=== PATIENT | male | born 1945 | race Caucasian/White ===

== ENCOUNTER 2016-07-01 09:47 | Day surgery (SDC) | payer MEDICARE, OTHER, BC ==
[~2016-07-01 09:47] MED LIST: ACETAMINOPHEN 1000MG/100 ML PREMIX IV ONE; CEFAZOLIN 1 Gram 50 ML IVPB ONE
[2016-07-01] MEDS ORDERED: TRAMADOL HCL 50 MG TABLET PO ONE (14:06)
[2016-07-01] MEDS ORDERED: BUPIVACAINE 0.25% W/EPI MPF 30ML VIAL IVP ONE (14:06)
[2016-07-01] MEDS ORDERED: PROPOFOL 10 MG/ML VIAL IV ONE (15:30)
[2016-07-01] MEDS ORDERED: LIDOCAINE 2% MDV (20MG/ML) 20ML VIAL IV ONE (15:30)
[2016-07-01] MEDS ORDERED: ONDANSETRON HCL IV 4 MG/2 ML VIAL IVP ONE (15:30)
[2016-07-01] MEDS ORDERED: FENTANYL PF 100MCG/2ML VIAL IV ONE (15:30)
[2016-07-01] MEDS ORDERED: MIDAZOLAM HCL 2MG/2ML VIAL IV ONE (15:30)
[2016-07-01] MEDS ORDERED: KETOROLAC 30 MG/ML VIAL IVP ONE (15:30)
--- NOTE | 2016-07-01 15:36 | Operative Note ---
OPERATIVE REPORT DATE OF PROCEDURE: 07/01/2016. SURGEON: Christiano Mays D.O. REFERRING PHYSICIAN: Ray Gonzales M.D. PREOPERATIVE DIAGNOSIS: Chest wall mass. POSTOPERATIVE DIAGNOSIS: Chest wall mass. PROCEDURE: Excision of chest wall mass. INDICATIONS: The patient is a 71-year-old male who presented to the clinic with an enlarging mass on his mid chest. This had the clinical appearance of a probable sebaceous cyst. It did have a puncta associated with this. The size of the chest wall mass was about 5.0 x 3.0 cm into the subcutaneous tissue. We did discuss excision versus observation and he desired surgical excision. The risks include bleeding, infection, and recurrence. Due to the location, we did talk about postoperative hypertrophic or keloid scarring. He understood this fully. DESCRIPTION OF PROCEDURE: Therefore consent was signed and questions were answered. He was taken to the operating room and was placed in the supine position. Local intravenous sedation was given per the Department of Anesthesia. The patient's chest was prepped and draped in the usual fashion. At this time an adequate time out was performed. He did receive a preoperative antibiotic. At this time the area around the mass was anesthetized with a total of 8.0 mL of 0.25% Sensorcaine with epinephrine. An elliptical incision was made around the mass incorporating the puncta. This was carried down to the capsule of the sebaceous cyst. This was dissected free from the surrounding tissue with both cautery as well as sharp dissection. This was then passed off the field. The wound was then closed with 3-0 and 4-0 Vicryl. Mastisol and Steri-Strips were applied. He was sent to the recovery room in satisfactory condition. FINDINGS AT THE TIME OF SURGERY: Sebaceous cyst. Final pathology pending. Christiano Mays D.O. Date Time JOB NUMBER: [id number] cc: Ray Gonzales M.D. [facility] CENTERAdrianna
== END 2016-07-01 12:50 | disposition home or self-care (01) ==
LOC: SUR 09:47
PROVIDERS: ATTEND Surgery
DX: D23.5 Other benign neoplasm of skin of trunk (principal); L91.8 Other hypertrophic disorders of the skin; I10 Essential (primary) hypertension; E11.9 Type 2 diabetes mellitus without complications; Z79.4 Long term (current) use of insulin; Z79.01 Long term (current) use of anticoagulants
CPT/HCPCS: 11406; 12034; 00300; 88305; J1885; J2405; J3010; J0690

== ENCOUNTER 2016-07-11 10:23 | Emergency (ER) | payer MEDICARE, OTHER, BC ==
[2016-07-11 11:28] LABS: HEMATOCRIT 48.6 % (42.0-52.0); HEMOGLOBIN 16.4 gm/dl (14.0-18.0); MEAN CELL VOLUME 91.7 fl (81-97); MEAN CORPUSCULAR HEMOGLOBIN 30.9 pg (27-33); MEAN CORPUSCULAR HGB CONC 33.7 g/dl (32-36); MEAN PLATELET VOLUME 9.5 fl (7.4-10.4); PLATELET COUNT 238 K/uL (130-400); RED CELL DISTRIBUTION WIDTH 14.8 % (11.5-14.5); WHITE BLOOD COUNT W/O DIFF 9.1 K/uL (4.2-12.2)
[2016-07-11 11:40] LABS: ANION GAP 14.3 (7-16); BLOOD UREA NITROGEN 13 mg/dL (9-20); CARBON DIOXIDE 24.7 mmol/L (22-30); CREATININE 0.8 mg/dL (0.66-1.25); EST GLOMERULAR FILTRATION RATE > 60 ml/min; GLUCOSE,RANDOM 239 mg/dL (70-110)
[2016-07-11 11:44] LABS: PLATELET ESTIMATE NORMAL (NORMAL)
--- NOTE | 2016-07-11 13:34 | Emergency Department Record ---
History of Present Illness - General Chief Complaint: General Stated Complaint: SURG COMPLICATION Time Seen by Provider: 07/11/16 10:53 Source: Patient, Family Mode of arrival: Ambulatory Limitations: No limitations - History of Present Illness Initial Comments: pt had a mass removed fron the sternal area weeks ago and has been doing fine. then he fell a week ago and has bruising and tenderness on his chest wall, then this am he started bleeding from the incision. that has stopped now. pt called dr go office and they told him to come in as it could be infected MD Complaint: Wound re-check -: Hour(s) Returns Today for: Wound recheck Symptoms Since Prior Visit: Worsening discharge, Worsening swelling - Related Data Home Medications Medication Instructions Recorded Confirmed Last Taken Allopurinol [Allopurinol] 300 mg PO DAILY 07/11/16 07/11/16 Unknown Clopidogrel Bisulfate [Plavix] 75 mg PO DAILY 07/11/16 07/11/16 Unknown Dulaglutide [Trulicity] 0.5 mg IM WEEKLY 07/11/16 07/11/16 Unknown Furosemide [Furosemide] 40 mg PO DAILY 07/11/16 07/11/16 Unknown Gabapentin [Gabapentin] 800 mg PO TID 07/11/16 07/11/16 Unknown Insulin Aspart [Novolog] 1 unit SQ DAILY 07/11/16 07/11/16 Unknown Insulin Glargine,Hum.rec.anlog 1 unit SQ DAILY 07/11/16 07/11/16 Unknown [Lantus] Metformin HCl [Metformin HCl ER] 750 mg PO DAILY 07/11/16 07/11/16 Unknown Pantoprazole Sodium [Protonix] 40 mg PO DAILY 07/11/16 07/11/16 Unknown Ramipril [Ramipril] 10 mg PO DAILY 07/11/16 07/11/16 Unknown Allergies Allergy/AdvReac Type Severity Reaction Status Date / Time duloxetine HCl Allergy Severe ALTERED Verified 06/25/16 09:41 [From Cymbalta] MENTAL STATUS hydrocodone bitartrate Allergy Severe ANAPHYLAXIS Verified 06/25/16 09:41 [From Vicodin] pregabalin [From Lyrica] AdvReac Intermediate DIZZINESS Verified 06/25/16 09:41 Travel Screening - Travel/Exposure Within Last 30 Days Have you traveled within the last 30 days?: No Review of Systems Reviewed: No additional complaints except as noted below Constitutional: Reports: As per HPI. Denies: Chills, Fever, Malaise, Night sweats, Weakness, Weight change Eyes: Reports: As per HPI. Denies: Eye discharge, Eye pain, Photophobia, Vision change ENT: Reports: As per HPI. Denies: Congestion, Dental pain, Ear pain, Epistaxis , Hearing loss, Throat pain Respiratory: Reports: As per HPI. Denies: Cough, Dyspnea, Hemoptysis, Stridor, Wheezes Cardiovascular: Reports: As per HPI. Denies: Arrhythmia, Chest pain, Dyspnea on exertion, Edema, Murmurs, Orthopnea, Palpitations, Paroxysmal nocturnal dyspnea, Rheumatic Fever, Syncope Endocrine: Reports: As per HPI. Denies: Fatigue, Heat or cold intolerance, Polydipsia, Polyuria Gastrointestinal: Reports: As per HPI. Denies: Abdominal pain, Constipation, Diarrhea, Hematemesis, Hematochezia, Melena, Nausea, Vomiting Genitourinary: Reports: As per HPI. Denies: Dysuria, Frequency, Hematuria, Incontinence, Retention, Testicular pain, Testicular mass, Urgency Musculoskeletal: Reports: As per HPI. Denies: Arthralgia, Back pain, Gout, Joint swelling, Myalgia, Neck pain Skin: Reports: As per HPI. Denies: Bruising, Change in color, Change in hair/ nails, Lesions, Pruritus, Rash Neurological: Reports: As per HPI. Denies: Abnormal gait, Confusion, Headache, Numbness, Paresthesias, Seizure, Tingling, Tremors, Vertigo, Weakness Psychiatric: Reports: As per HPI. Denies: Anxiety, Auditory hallucinations, Depression, Homicidal thoughts, Suicidal thoughts, Visual hallucinations Hematological/Lymphatic: Reports: As per HPI. Denies: Anemia, Blood Clots, Easy bleeding, Easy bruising, Swollen glands Past Medical History - SOCIAL HISTORY Smoking Status: Former smoker Alcohol Use: None Drug Use: None - RESPIRATORY Hx Respiratory Disorders: Yes Hx Asthma: Yes Hx COPD: Yes Hx Dyspnea: Yes (ALS & COPD) Hx Pneumonia: Yes (3 weeks ago) Comment:: has severe nightmares-rarely [id number] with him it is better - CARDIOVASCULAR Hx Cardio Disorders: Yes Hx Cardiac Cath: Yes Hx CHF: Yes Hx Deep Vein Thrombosis: Yes (left leg years ago) Hx Edema: Yes (on occasion-none now) Hx Heart Attack: Yes (14 yrs ago-stent done) Hx Hypertension: Yes (good control 137/74 today) Hx Vascular Disease: Yes (poor circulation) Hx Coronary Stent: Yes Comment:: 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 - NEURO Hx Neuro Disorders: Yes Hx Dementia: Yes (start of) Hx Dizziness: Yes (not always) Hx Headaches: Yes Hx of Migraines: Yes Hx Neuropathy: Yes ("whole body leonides right side") Hx Speech Problem: Yes (ALS start of problems) Hx TIA: Yes Hx of Neuromuscular Disease: Yes (ALS-Dx -2015) Hx Weakness: Yes (ALS) - GI Hx GI Disorders: Yes Hx Reflux: Yes Hx Hiatal Hernia: Yes Hx Nausea/Vomiting: Yes (sometimes) Hx Ulcer: Yes Hx Wt Loss/Wt Gain: Yes (50 # loss in 3 months-ALS) Hx of Polyps: Yes (twice removed) - Hx Genitourinary Disorders: No - ENDOCRINE Hx Endocrine Disorders: Yes Hx Diabetes: Yes - MUSCULOSKELETAL Hx Musculoskeletal Disorders: Yes Hx Arthritis: Yes (all over) Hx Back Injury: Yes Hx Gout: Yes Hx Musculoskeletal Disease: Yes (ALS) Hx Osteoporosis: Yes (little bit) - PSYCH Hx Psych Problems: Yes Hx Anxiety: Yes Hx Behavior Problems: Yes ("borderline bipolar") Hx Depression: Yes Comment:: PTSD- helps keep him calm - HEMATOLOGY/ONCOLOGY Hx Hematology/Oncology Disorders: Yes Hx Cancer: Yes (facial) Hx Blood Transfusions: Yes Hx Blood Transfusion Reaction: No Family Medical History Any Significant Family History?: Yes Hx Alcohol Use: Father Hx Cancer: Father, Mother Hx Heart Disease: Mother Hx HTN: Father Hx Resp Disorders: Mother Physical Exam - General General Appearance: Alert, Oriented x3, Cooperative, Mild distress - Head Head exam: Normal inspection - Eye Eye exam: Normal appearance, PERRL, EOMI Pupils: Normal accommodation - ENT ENT exam: Normal exam, Mucous membranes moist, Normal external ear exam, Normal orophraynx, TM's normal bilaterally Ear exam: Normal external inspection. negative: External canal tenderness Nasal Exam: Normal inspection. negative: Discharge, Sinus tenderness Mouth exam: Normal external inspection, Tongue normal Teeth exam: Normal inspection. negative: Dental caries Throat exam: Normal inspection. negative: Tonsillar erythema, Tonsillar exudate - Neck Neck exam: Normal inspection, Full ROM. negative: Tenderness - Respiratory Respiratory exam: Chest wall tenderness, Other (ecchymosis , tenderness, swelling). negative: Respiratory distress - Cardiovascular Cardiovascular Exam: Regular rate, Normal rhythm, Normal heart sounds - GI/Abdominal GI/Abdominal exam: Soft, Normal bowel sounds. negative: Tenderness - Rectal Rectal exam: Deferred - exam: Deferred - Extremities Extremities exam: Normal inspection, Full ROM, Normal capillary refill. negative: Tenderness - Back Back exam: Reports: Normal inspection, Full ROM. Denies: Muscle spasm, Rash noted, Tenderness - Neurological Neurological exam: Alert, Normal gait, Oriented X3, Reflexes normal - Psychiatric Psychiatric exam: Normal affect, Normal mood - Skin Skin exam: Dry, Intact, Normal color, Warm Course Vital Signs 07/11/16 10:39 Temperature 98.5 F Pulse Rate 105 H Respiratory 18 Rate Blood Pressure 138/90 - Reevaluation(s) Reevaluation #1: 07/11/16 13:59 d/w dr lowry Medical Decision Making - Management Options MDM Management: Additional Work-up Planned (e.g. ADM/Transfer/OP Study) - Data Complexity MDM Data: Labs Ordered and/or Reviewed, X-Ray Ordered and/or Reviewed - Lab Data Result diagrams: 07/11/16 11:20 07/11/16 11:20 Lab Results 07/11/16 07/11/16 Range/Units 11:20 11:20 WBC 9.1 (4.2-12.2) K/uL RBC 5.30 (4.40-5.70) M/uL Hgb 16.4 (14.0-18.0) gm/dl Hct 48.6 (42.0-52.0) % MCV 91.7 (81-97) fl MCH 30.9 (27-33) pg MCHC 33.7 (32-36) g/dl RDW 14.8 H (11.5-14.5) % Plt Count 238 (130-400) K/uL MPV 9.5 (7.4-10.4) fl Neutrophils % 57.0 (47-80) % Lymphocytes % 22.0 (16-45) % Monocytes % 15.0 H (0-9) % Eosinophils % 6.0 (0-6) % Basophils % Not Reportable Platelet Estimate Normal (NORMAL) RBC Morphology Normal Sodium 138 (136-145) mmol/L Potassium 4.0 (3.5-5.1) mmol/L Chloride 99 (98-107) mmol/L Carbon Dioxide 24.7 (22-30) mmol/L Anion Gap 14.3 (7-16) BUN 13 (9-20) mg/dL Creatinine 0.8 (0.66-1.25) mg/dL Estimated GFR > 60 ml/min Random Glucose 239 H (70-110) mg/dL Calcium 9.2 (8.5-10.1) mg/dL Disposition Disposition: Discharge Clinical Impression: Hematoma, Thyroid nodule, Lung nodule Disposition: Home, Self-Care Condition: (1) Good Instructions: Contusion in Adults (ED), Pulmonary Nodules (ED), Thyroid Nodules (ED) Additional Instructions: follow up with dr lowry on friday and with family doctor. ice to chest. return sooner if worse. have ultrasound of thyroid. have repeat chest cat scan in 3 months Forms: Patient Portal Access
--- NOTE | 2016-07-12 11:26 | CT SCAN REPORT ---
DATE: 07/11/2016 at 12:17. EXAM: CT OF THE CHEST WITH CONTRAST. HISTORY: Post cyst removal two weeks ago from below the right breast region. Incisional drainage and bruising. TECHNIQUE: Routine contrast-enhanced helical CT examination of the thorax was performed. COMPARISON: Two-view chest radiographic examination dated 12/05/2012. FINDINGS: The heart is not enlarged. There is diffuse atherosclerotic calcification of the coronary arteries. There is mild calcification of the aortic valve. The thoracic aorta is mildly atherosclerotic throughout, but without focal aneurysm. The ascending thoracic aorta is mildly ectatic measuring 3.7 cm in diameter. The thyroid gland is enlarged, lobulated, and heterogeneous with multiple nodules likely within. There is a hypodense nodule within the isthmus centered left of midline measuring 1.2 x 1.7 cm. Additionally, there is a solid- appearing nodule with calcification contiguous with the posterior margin of the mid to lower left thyroid lobe. This measures 1.4 x 1.4 cm. These are of indeterminate etiology, and further evaluation with thyroid ultrasound would be recommended. No mediastinal or hilar mass/lymphadenopathy is seen. Bilateral emphysema is present. Minor patchy opacities are noted in the dependent lungs consistent with atelectasis. There is mild pleural-based nodularity at the posterior left midlung level with the largest located medially measuring 12 x 5.0 mm. The etiology of this is indeterminate. Short- term follow up CT examination in approximately three months is recommended. There is also minimal pleural plaque formation at the posteromedial right hemithorax at the midlung level. No pleural effusion or pericardial effusion. No lytic or blastic bone lesion is seen. The adrenal glands are not enlarged. There is a subcutaneous mass in the anterior midline chest wall anterior to the inferior aspect of the sternal body. This measures 2.0 x 3.5 cm, and near its superior margin there is a tiny collection of gas. This is likely the incision site and is consistent with postsurgical seroma or abscess. No underlying bone abnormality. There are hypodense masses arising within the right kidney with that at the anterior midlung level measuring up to 12 mm, and that in the medial region measuring 8.0 mm. These are consistent with benign cysts. IMPRESSION: 1. SUBCUTANEOUS MASS MEASURING 2.0 X 3.5 CM IN THE ANTERIOR MIDLINE CHEST WALL AT THE LEVEL OF THE INFERIOR ASPECT OF THE STERNAL BODY. ITS SUPERIOR MARGIN CONTAINS A SMALL AMOUNT OF GAS. THIS DOES NOT MEET STRICT DENSITY CRITERIA FOR SIMPLE CYST. DIAGNOSTIC CONSIDERATIONS INCLUDE SEROMA AND ABSCESS. NO UNDERLYING BONE ABNORMALITY. 2. DIFFUSE ATHEROSCLEROTIC CALCIFICATION OF THE CORONARY ARTERIES. 3. MULTINODULAR THYROID GLAND, DISCUSSED ABOVE. FURTHER EVALUATION WITH THYROID ULTRASOUND IS RECOMMENDED. 4. RIGHT RENAL CYSTS SUSPECTED. NOT MENTIONED ABOVE ARE A COUPLE OF TOO SMALL TO CHARACTERIZE HYPODENSE LESIONS IN THE SUPERIOR CORTEX OF THE LEFT KIDNEY. THESE ARE NONSPECIFIC BUT ALSO LIKELY CYSTS. 5. SOMEWHAT NODULAR PLEURAL-BASED OPACITIES IN THE POSTERIOR MID LEFT HEMITHORAX OF INDETERMINATE ETIOLOGY FOR WHICH FOLLOW UP CT CHEST EXAMINATION IN THREE MONTHS IS RECOMMENDED. JOB NUMBER: [id number] MTDD
== END 2016-07-11 14:16 | disposition home or self-care (01) ==
LOC: ER 10:23
DX: S20.219A Contusion of unspecified front wall of thorax, initial encounter (principal); R91.1 Solitary pulmonary nodule; E04.1 Nontoxic single thyroid nodule; W19.XXXA Unspecified fall, initial encounter; Z98.890 Other specified postprocedural states
CPT/HCPCS: 99284 ×2; 80048; 85027; 71260; Q9967

== ENCOUNTER 2017-01-13 08:57 | Day surgery (SDC) | payer MEDICARE, OTHER, BC ==
[2017-01-13] MEDS ORDERED: LIDOCAINE 2% MDV (20MG/ML) 20ML VIAL IV ONE (14:00)
[2017-01-13] MEDS ORDERED: PROPOFOL 10 MG/ML VIAL IV ONE (14:00)
[2017-01-13] MEDS ORDERED: FENTANYL PF 100MCG/2ML VIAL IV ONE (14:00)
--- NOTE | 2017-01-15 12:10 | Operative Note ---
DATE OF SURGERY: 01/13/2017 OPERATION: ESOPHAGOGASTRODUODENOSCOPY with biopsy. INDICATION: Prior history of Scanlon's esophagus. The patient returns at this time for surveillance. He denies significant pyrosis or dysphagia. ANESTHESIA: Intravenous sedation was administered by the department of anesthesiology and included Diprivan titrated to effect. PROCEDURE: Following informed consent from this alert individual, including a discussion of the risks and benefits of the procedure and an opportunity for the patient to ask questions, the patient was in the left lateral decubitus position. The Olympus [id number] video endoscope was inserted into the esophagus without resistance. There was a small inlet patch noted in the proximal esophagus. The remainder of the esophagus was unremarkable except for the gastroesophageal junction which revealed some slight irregularity but no ulcerations, erosions, or raised areas noted. Biopsies from this site were taken. The stomach was then entered. There was some diffuse mild erythema noted, particularly in the antrum and gastric body but no ulcerations or erosions were seen. Multiple small gastric fundal polyps noted as well. Biopsies taken from the stomach to assess for Helicobacter pylori and check histology. The pylorus was symmetrical and patent. The duodenal bulb, sweep, and descending duodenum were examined in a serial fashion and found to be normal. The endoscope was then withdrawn back into the body of the stomach. Retroflexion accomplished following air insufflation failed to demonstrate additional changes. The endoscope was then straightened and withdrawn. No additional abnormalities were detected. The patient tolerated the procedure well and was returned to the recovery area in stable condition. IMPRESSION: 1. Small esophageal inlet patch. 2. Slight irregularity of the squamocolumnar junction, biopsies taken. 3. Diffuse mild gastritis, biopsies taken. 4. Multiple small gastric fundal polyps. RECOMMENDATION: The patient will continue on acid blockade therapy. Further recommendations forthcoming pending results of biopsies. Followup will also be with Dr. Anni Rosales. As always, thank you for allowing me to participate in the care of your patient. CC: Dr. Pablo EMERSON
--- NOTE | 2017-01-15 12:10 | Operative Note ---
DATE OF SURGERY: 01/13/2017 OPERATION: COLONOSCOPY to the cecum with cold biopsy forceps polypectomy x2. INDICATION: History of adenomatous polyps. ANESTHESIA: Intravenous sedation was administered by the department of anesthesiology and included Diprivan titrated to effect. PROCEDURE: Following informed consent from this alert individual including a discussion of the risks and benefits of the procedure and an opportunity for the patient to ask questions, the patient was in the left lateral decubitus position. A digital rectal examination was performed. No abnormalities were noted. Following this, the Olympus [id number] video colonoscope was inserted into the rectum without resistance. The rectal mucosa had a normal appearance with normal folds and distensibility. The preparation was fair throughout the bowel. Washing and suctioning was employed vigorously with adequate visualization. The cecum was defined by noting the appendiceal orifice and ileocecal valve. There was a retained small bone or stem noted at the cecum which was removed with biopsy forceps. Also noted at the cecum were 2 sessile polyps measuring 3 and 4 mm, respectively. Each was removed with the application of cold biopsy forceps. Retroflexion in the cecum was unremarkable. From this point, the colonoscope was then further withdrawn. No additional polyps were noted throughout. Within the cecum, retroflexion was accomplished and this failed to demonstrate any additional changes. The endoscope was straightened and withdrawn. The patient tolerated the procedure well and was returned to the recovery area in stable condition. IMPRESSION: 1. Two cecal polyps noted as above measuring 3 and 4 mm in size, each removed with application of biopsy forceps. 2. Small bone or stem noted in the cecum, which was removed with biopsy forceps. 3. Fair preparation. RECOMMENDATIONS: The patient most likely will have recheck colonoscopy in 3 years' time for a history of polyps and preparation noted today. He will otherwise follow up with Dr. Anni Rosales. As always, thank you for allowing me to participate in the care of your patient. CC: Dr. Pablo EMERSON
== END 2017-01-13 11:46 | disposition home or self-care (01) ==
LOC: HOP 08:57
PROVIDERS: ATTEND Internal Medicine Gastroenterology
DX: Z86.010 Personal history of colon polyps (principal); D12.0 Benign neoplasm of cecum; K29.60 Other gastritis without bleeding; K31.89 Other diseases of stomach and duodenum; I10 Essential (primary) hypertension; E78.1 Pure hyperglyceridemia; E11.9 Type 2 diabetes mellitus without complications; Z79.4 Long term (current) use of insulin; Z79.84 Long term (current) use of oral hypoglycemic drugs; Z79.01 Long term (current) use of anticoagulants; K31.7 Polyp of stomach and duodenum
CPT/HCPCS: 45380; 43239; 00810; 88305; 88313; J3010